=== PATIENT | male | born 1945 | race Caucasian/White ===

== ENCOUNTER 2017-05-29 14:11 | Outpatient (CLI) | payer BC, MEDICARE ==
--- NOTE | 2017-05-29 17:05 | RAD ---
PA AND LATERAL CHEST X-RAY 05/29/17 HISTORY: Dyspnea. COMPARISON: 02/18/17. FINDINGS: Right subclavian Mediport catheter remains in place and unchanged in position. Postsurgical change r elated to median sternotomy are again noted. Again noted are the parenchymal changes overlying the l eft hilar region with linear density extending laterally in the left mid lung zone unchanged from th e prior study. There are stable sclerotic densities in a few left sided ribs which were also seen on prior exam. There has been no interval change when compared to the prior study. IMPRESSION: 1. Stable parenchymal lung changes overlying the left hilar region in the left mid lung zone. 2. Stable sclerotic lesions in a few left sided ribs. 3. Chest is stable from prior exam. POS: ROSALBA
== END 2017-05-29 14:12 | disposition home or self-care (01) ==
LOC: RAD 14:11
PROVIDERS: ATTEND Family Medicine
DX: R06.00 Dyspnea, unspecified (principal); J98.4 Other disorders of lung; M89.8X8 Other specified disorders of bone, other site
CPT/HCPCS: 71020

== ENCOUNTER 2017-06-10 09:56 | Inpatient (IN) | payer BC, MEDICARE ==
[2017-06-10] MEDS ORDERED: Dextrose 50% Abboject 50 ML SYRINGE ONE (10:04)
--- NOTE | 2017-06-10 11:16 | RAD ---
PORTABLE CHEST: History: Hypoglycemia. Comparison: 05-29-17 FINDINGS/IMPRESSION: There is abnormal linear opacity in the left midlung extending from the left hilum. There is abnorma l density in the left hilum. A left hilar mass is not excluded. There is also linear atelectatic changes in the right lower lung field which is a new finding. A Massdrop iport catheter is in place with tip overlying the SVC. There is a prosthetic heart valve and post op sternotomy change. No evidence of significant change when compared to the 05-29-17 exam. Chronic left hilar and left mi dlung field opacity is again noted. Linear density in the right lower lung is slightly more prominen t today, but was present on the 05-29-17 study. POS: ROSALBA
[2017-06-10 12:19] LABS: #Lymphocytes 0.5 thou/uL (1.20-3.40); #Monocytes 0.3 thou/uL (0.11-0.59); #Neutrophils 6.8 thou/uL (1.40-6.50); %Basophils 0.1 % (0.0-1.0); %Eosinophils 0.4 % (0.0-10.0); %Lymphocytes 6.2 % (21.0-51.0); %Monocytes 4.3 % (0.0-10.0); Hematocrit 44.6 % (42.0-52.0); Mean Platelet Volume 7.1 fL (7.4-10.4); Red Blood Cell (RBC) Count 4.46 mill/uL (4.70-6.10); White Blood Cell (WBC) Count 7.7 thou/uL (4.8-10.8)
[2017-06-10 12:38] LABS: ALT (SGPT) 18 U/L (8-55); AST (SGOT) 19 U/L (5-34); Alkaline Phosphatase 66 U/L (40-150); Anion Gap 17 mmol/L (10-20); BUN (Urea Nitrogen) 10 mg/dL (8.4-25.7); Bilirubin, Total 0.9 mg/dL (0.2-1.2); CK (CPK) 99 U/L (30-200); Calc. Creatinine Clearance 0 mL/min (70-130); Calcium 10.9 mg/dL (7.8-10.44); Carbon Dioxide 25 mmol/L (23-31); Chloride 103 mmol/L (98-107); Estimated GFR-MDRD Greater than 90; Globulin 3.8 g/dL (2.4-3.5); Protein, Total 7.9 g/dL (5.8-8.1)
[2017-06-10 12:43] LABS: Troponin I Less than 0.010 ng/mL (< 0.028)
--- NOTE | 2017-06-10 13:31 | CT ---
CT HEAD WITHOUT CONTRAST: HISTORY: Mental status change. Hypoglycemia. COMPARISON: Prior MRI, dated 02/20/2017, which revealed extensive intraaxial enhancing lesions, consistent with progression of intracranial metastatic disease. That exam revealed extensive edema in the right cer ebral hemisphere. TECHNIQUE: Multiple axial tomograms obtained through the head without IV enhancement. FINDINGS: On today's exam, there is increasing edema in the right cerebral hemisphere, when compared to the CT of 02/20/2017. There was a large enhancing mass in the peripheral right frontal lobe on the prior MRI, measuring up to 4 cm. Slight midline shift from right to left, measured at the septum pellucid um, of approximately 2 to 3 mm. No acute hemorrhage. Mucosal edema in the left frontal and maxillary air cells again noted. IMPRESSION: Patient with known diffuse intracranial metastatic disease. There is increasing edema in the right cerebral hemisphere today, when compared to the prior exam, and there is slight midline shift. POS: ROSALBA
[2017-06-10] MEDS ORDERED: Mag-Al 1200 mg/1200 mg/30 ML UDCUP PO PRN (15:40)
[2017-06-10] MEDS ORDERED: Dextrose 5% in Water 1,000 ML IV PRN (15:40)
[2017-06-10] MEDS ORDERED: Senokot 8.6 MG TAB PO PRN (15:40)
[2017-06-10] MEDS ORDERED: Dextrose 50% Abboject 50 ML SYRINGE SLOW IVP PRN (15:40)
[2017-06-10] MEDS ORDERED: Guaifenesin DM 100-10/5 ML UDCUP PO PRN (15:40)
[2017-06-10] MEDS: Dextrose 5 % And 0.9 % NaCl 1,000 ML IV SCH ×2 (16:02→16:30)
[2017-06-10 18:26] VITALS: BMI 32.8
--- NOTE | 2017-06-10 19:28 | HP ---
REASON FOR ADMISSION: Persistent hypoglycemia with altered mental state. HISTORY OF PRESENT ILLNESS: Please note the majority of this history is obtained by my talking to patient's at bedside. She gives history of patient being weak from last 3 weeks. He has been falling and he is having constant headaches. He normally takes 800 mg of Motrin bedtime and Tylenol 3 tablets p.r.n. for headaches during the day. Last evening, he was not coherent and appeared confused. She summoned EMS and he had fingerstick glucose of 28. The EMS gave him D50 and the sugar came up to 100. The patient ate some crackers, orange juice and apple juice and felt good. Around midnight, he was sitting in a recliner and he felt very weak. He could not get out of the recliner. So, also slept in the sofa. This morning around 8:00 a.m., he became unresponsive and did not move. Prior to that, he would moan or say one or two words when would call him. He also had not passed any urine or used restroom for nearly 10-12 hours being in the recliner. All of this concerned hence she summoned EMS again. The patient had glucose again in the low 20s. They gave him D50, it came up to 78 and again went back down to 50s. Since then he has been placed on a D5 normal saline drip. The patient is slowly waking up now. He is able to recognize his . He is moving all extremities at present. He moves his right extremities better than left. No complaints of fever. No cough or expectoration. 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 He follows up at [facility]. He has had nearly a total of 14 cycles of chemotherapy done for his lung cancer. In February of this year, patient had an MRI of the brain and a PET scan done, which showed 9 new lesions in his brain had 10 rounds of radiation therapy done in February. Follow up in April showed the brain lesions to be shrinking but the left lung mass had grown plus there was a new spot on the liver. He had another 10 rounds of radiation therapy to the lungs. The next followup is in this month second week if he were to have recurrence or the mass or if his lung cancer remains the same size, he would be placed on experimental drug per . Diabetes mellitus, type 2; aortic valve replacement in 2010; dyslipidemia; peripheral neuropathy; sleep apnea; erectile dysfunction; circumcision for phimosis; hydrocele; cataract surgery; history of bronchoscopy for hemoptysis. He has had gamma knife radiation as mentioned above, MediPort placement in the right side. CURRENT MEDICATIONS: The patient is on metformin 1000 mg p.o. twice daily, atorvastatin 10 mg every other day, glipizide 10 mg twice daily, gabapentin 400 mg 3 times daily, losartan 50 mg q.a.m., Farxiga 5 mg p.o. daily, primidone 50 mg 3 times daily, omega-3 fatty acid 1 capsule daily. ALLERGIES: No known drug allergies. PERSONAL HISTORY: Quit smoking 21 years ago, prior to which has smoked nearly 2 packs a day for 30 years or so. Does not abuse alcohol or drugs. Lives with his . FAMILY HISTORY: Mom of cancer in her 60s, it is unclear the type. Father of dementia and old age, he was 89 years old. REVIEW OF SYSTEMS: The following complete review of systems was negative, unless otherwise mentioned in the HPI or below: Constitutional: Weight loss or gain, ability to conduct usual activities. Skin: Rash, itching. Eyes: Double vision, pain. ENT/Mouth: Nose bleeding, neck stiffness, pain, tenderness. Cardiovascular: Palpitations, dyspnea on exertion, orthopnea. Respiratory: Shortness of breath, wheezing, cough, hemoptysis, fever or night sweats. Gastrointestinal: Poor appetite, abdominal pain, heartburn, nausea, vomiting, constipation, or diarrhea. Genitourinary: Urgency, frequency, dysuria, nocturia. Musculoskeletal: Pain, swelling. Neurologic/Psychiatric: Anxiety, depression. Allergy/Immunologic: Skin rash, bleeding tendency. PHYSICAL EXAMINATION: GENERAL: The patient is a 72-year-old male, who is currently lethargic, but arousable. VITAL SIGNS: Blood pressure 110/46, pulse 90 per minute, respiratory rate 18 per minute, temperature 98 degrees Fahrenheit, saturating 100% on room air. NECK: Supple, no elevated JVD. HEENT: Eyes: Extraocular muscles intact. Pupils are reacting to light. Oral cavity mucous membranes are dry. No exudates or congestion. CARDIOVASCULAR: S1, S2 heard. Regular rhythm. RESPIRATORY: Air entry 1+ bilateral. Scattered rhonchi plus no rales or wheezes. ABDOMEN: Soft, bowel sounds heard. No tenderness, rigidity or guarding. EXTREMITIES: No peripheral edema or calf tenderness. VASCULAR: Peripheral pulses 1+ bilateral. No ischemic ulcerations or gangrene. CENTRAL NERVOUS SYSTEM: The patient is lethargic, but responds well to verbal questions. He is still groggy. Moves all extremities, but right extremities better. PSYCHIATRIC: Cannot be accurately assessed due to current lethargy with hypoglycemia. LABORATORY AND X-RAY FINDINGS: White count of 7.7, H\T\H are 14 and 44, platelet count 180, MCV is 100 with 89% neutrophils. Electrolytes are stable. BUN 10, creatinine 0.7. His fingerstick glucose has been ranging from 58 to 102. Liver enzymes are within normal limits. Albumin is 4.1. CK level is 99, troponin I less than 0.01. CT brain shows the patient has diffuse intracranial metastatic disease, there is increasing edema in the right cerebral hemisphere when compared to prior MRI done in 02/2017, there is also slight midline shift. Chest x-ray done shows there was abnormal linear opacity in the left mid lung extending from the left hilum. There was also left mid lung field opacity seen. CLINICAL IMPRESSION AND PLAN: The patient will be admitted to medical floor for persistent hypoglycemia with advanced lung cancer with multiple mets. The patient and family are aware of progressive lung cancer. He is on glipizide, metformin and Farxiga, all of which will be held for now. He has had poor oral intake from last 2-3 weeks now. The patient will be placed on D5 normal saline at 75 mL per hour until 2 fingerstick glucose readings are persistently more than 200. We will continue him on Pepcid, Neurontin as before. All other medications will be held for now until he is more awake and oriented. His overall prognosis is poor. I have discussed code status with . The patient and have a full living will. Per , the patient is a FULL CODE and they do want cardiopulmonary resuscitation done. The is the power of engineer operations and maintenance and will decide within 30 days if he still needs to continue on life sustaining measures or go for withdrawal per . Again, patient has a followup in the second week of this month and if he does have recurrence, [facility] is planning to place him on experimental drugs. His weakness is due to progressive lung cancer with multiple metastases. MTDD
[2017-06-10] MEDS: Gabapentin 400 MG CAP PO SCH (20:07)
[2017-06-10] MEDS: Heparin 5,000 UNITS/ML VIAL SC SCH (20:07)
[2017-06-10] MEDS: Famotidine 20 MG TAB PO SCH (20:07)
[2017-06-10] MEDS: Acetaminophen 325 MG TAB PO PRN (21:25)
[2017-06-11 04:39] LABS: Anion Gap 10 mmol/L (10-20); BUN (Urea Nitrogen) 7 mg/dL (8.4-25.7); Calc. Creatinine Clearance 149 mL/min (70-130); Carbon Dioxide 25 mmol/L (23-31); Chloride 106 mmol/L (98-107); Estimated GFR-MDRD Greater than 90
[2017-06-11 05:30] LABS: Band 3 % (5-11); Hematocrit 37.2 % (42.0-52.0); Mean Platelet Volume 7.9 fL (7.4-10.4); Neutrophil 77 % (42-75); White Blood Cell (WBC) Count 4.8 thou/uL (4.8-10.8)
[2017-06-11] MEDS: Dextrose 5 % And 0.9 % NaCl 1,000 ML IV SCH ×2 (05:36→17:04)
[2017-06-11] MEDS: Acetaminophen 325 MG TAB PO PRN ×2 (05:37→21:00)
[2017-06-11] MEDS ORDERED: FLU VACC TS2017-18 (>65YR) 0.5 ML SYRINGE IM ONE (09:00)
[2017-06-11] MEDS: Gabapentin 400 MG CAP PO SCH ×3 (09:33→21:00)
[2017-06-11] MEDS: Famotidine 20 MG TAB PO SCH ×2 (09:35→21:00)
[2017-06-11] MEDS: Heparin 5,000 UNITS/ML VIAL SC SCH ×2 (09:36→21:01)
[2017-06-11] MEDS: Dexamethasone 4 mg/ml Vial SLOW IVP SCH ×2 (09:41→17:04)
--- NOTE | 2017-06-11 13:11 | PDOC.PN ---
- Subjective Encounter Start Date: 06/11/17 Encounter Start Time: 11:15 -: old records requested/rev Patient seen and examined. pt is encephalopathic No overnight events - Objective Resuscitation Status: Resuscitation Status FULL:Full Resuscitation MAR Reviewed: Yes Vital Signs & Weight: Vital Signs (12 hours) Temp Pulse Resp BP Pulse Ox 06/11/17 08:00 100.3 F H 79 18 95 06/11/17 04:00 100.3 F H 79 18 114/72 91 L Weight Admit Weight 229 lb 4.48 oz Weight 229 lb 4.48 oz I&O: 06/10/17 06/11/17 06/12/17 06:59 06:59 06:59 Intake Total 1719 360 Output Total 300 Balance 1419 360 Result Diagrams: 06/11/17 04:03 06/11/17 04:03 Additional Labs: Accuchecks 06/11/17 06/11/17 06/11/17 11:38 05:07 01:06 POC Glucose 115 H 88 74 06/10/17 06/10/17 06/10/17 20:29 17:09 16:33 POC Glucose 71 84 55 L* 06/10/17 13:52 POC Glucose 80 Radiology Reviewed by me: Yes (CT brain) Phys Exam - Physical Examination Constitutional: NAD HEENT: PERRLA, sclera anicteric Neck: no JVD, supple Respiratory: no wheezing, no rales, no rhonchi Cardiovascular: RRR, no significant murmur, no rub Gastrointestinal: soft, no distention, positive bowel sounds Musculoskeletal: no edema, pulses present unable to examine Lymphatic: no nodes Deviation from normal: unable to assess Skin: no rash, normal turgor Dx/Plan (1) Acute metabolic encephalopathy due to hypoglycemia Code(s): G93.41 - METABOLIC ENCEPHALOPATHY; E16.2 - HYPOGLYCEMIA, UNSPECIFIED Status: Acute (2) Brain metastases Code(s): C79.31 - SECONDARY MALIGNANT NEOPLASM OF BRAIN Status: Chronic (3) DM2 (diabetes mellitus, type 2) Status: Chronic Comment: (4) HLD (hyperlipidemia) Code(s): E78.5 - HYPERLIPIDEMIA, UNSPECIFIED Status: Chronic (5) Lung cancer Code(s): C34.90 - MALIGNANT NEOPLASM OF UNSP PART OF UNSP BRONCHUS OR LUNG Status: Chronic (6) NIKITA (obstructive sleep apnea) Code(s): G47.33 - OBSTRUCTIVE SLEEP APNEA (ADULT) (PEDIATRIC) Status: Chronic (7) Obesity (BMI 30-39.9) Code(s): E66.9 - OBESITY, UNSPECIFIED Status: Chronic - Plan cont current plan of care, plan discussed w/ family, social service assistant * will add decadron * continue IVF * oncology consult * medication reviewed as below * symptomatic treatment * prognosis is poor * palliative care consult. Review of Systems - Review of Systems Other: unable to review as pt is encephalopathic - Medications/Allergies Allergies/Adverse Reactions: Allergies Allergy/AdvReac Type Severity Reaction Status Date / Time No Known Allergies Allergy Verified 06/10/17 16:07 Medications: Current Medications Acetaminophen (Tylenol) 650 mg PO Q4H PRN PRN Reason: Headache/Fever or Pain Last Admin: 06/11/17 05:37 Dose: 650 mg Al Hydroxide/Mg Hydroxide (Maalox) 30 ml PO Q6H PRN PRN Reason: Heartburn or Indigestion Dexamethasone (Decadron) 4 mg SLOW IVP Q8H [facility] Last Admin: 06/11/17 09:41 Dose: 4 mg Dextrose/Water (Dextrose 50%) 25 gm SLOW IVP PRN PRN PRN Reason: Hypoglycemia Famotidine (Pepcid) 20 mg PO BID [facility] Last Admin: 06/11/17 09:35 Dose: 20 mg Gabapentin (Neurontin) 400 mg PO TID [facility] Last Admin: 06/11/17 09:33 Dose: 400 mg Glucagon (Glucagon) 1 mg IM PRN PRN PRN Reason: Hypoglycemia Guaifenesin/Dextromethorphan (Robitussin Dm) 15 ml PO Q4H PRN PRN Reason: Cough Heparin Sodium (Porcine) (Heparin) 5,000 units SC BID [facility] Last Admin: 06/11/17 09:36 Dose: 5,000 units Dextrose/Sodium Chloride (D5 0.9% Ns) 1,000 mls @ 75 mls/hr IV .[id number] [facility] Last Admin: 06/11/17 05:36 Dose: 1,000 mls Dextrose/Water (D5w) 1,000 mls @ 0 mls/hr IV .Q0M PRN; As Directed PRN Reason: Hypoglycemia Senna (Senokot) 2 tab PO HSPRN PRN PRN Reason: Constipation Sodium Chloride (Flush - Normal Saline) 10 ml IVF Q12HR ALEIDA Sodium Chloride (Flush - Normal Saline) 10 ml IVF PRN PRN PRN Reason: Saline Flush
[2017-06-12] MEDS ORDERED: Dextrose 5% in Water 1,000 ML IV PRN (00:39)
[2017-06-12] MEDS ORDERED: HumaLOG 300 UNITS/3 ML VIAL SC PRN ×2 (00:39)
[2017-06-12] MEDS ORDERED: Dextrose 50% Abboject 50 ML SYRINGE IVP PRN (00:39)
[2017-06-12] MEDS: Dexamethasone 4 mg/ml Vial SLOW IVP SCH ×3 (02:03→17:18)
--- NOTE | 2017-06-12 05:59 | CON ---
DATE OF CONSULTATION: 06/11/2017 HISTORY OF PRESENT ILLNESS: The patient is well known to me. He has a small cell carcinoma of lung with brain metastasis and liver metastasis and possibly metastasis to other organs sites also. He has failed chemotherapy and had been radiated to the brain lesion more than once. He also recently had radiation therapy to his lesions in the chest. The patient was admitted with hypoglycemia. CT scan shows increasing edema in the brain. He has been started on the steroids. His mental status h as improved following correction of hypoglycemia. However, he is confined to bed. He has very yasmine le out of bed activity during the past 2 weeks. PHYSICAL EXAMINATION: GENERAL: The patient is alert and oriented. There is no palpable adenopathy. CHEST: Clear to percussion and auscultation. HEART: Regular rhythm. S1 and S2. ABDOMEN: Soft. SKIN: Skin has several large bruises. LABORATORY DATA: CBC and chemistries were reviewed. ASSESSMENT AND RECOMMENDATIONS: I had a very very lengthy discussion with the patient and his . We discussed DNR, palliative care, hospice, at great length. I have recommended that the patient be DNR and should go home with the help of hospice. The patient and did not want to be DNR imm ediately, but want to think about it. They still were talking about [facility], though I do not think there is much to be gained by pursuing a treatment option towards his cancer. Thanks very much for asking me to participate in this patient's care.
[2017-06-12 06:44] LABS: #Lymphocytes 0.3 thou/uL (1.20-3.40); #Monocytes 0.1 thou/uL (0.11-0.59); #Neutrophils 3.8 thou/uL (1.40-6.50); %Eosinophils 0.4 % (0.0-10.0); %Lymphocytes 7.5 % (21.0-51.0); %Monocytes 2.7 % (0.0-10.0); Hematocrit 38.6 % (42.0-52.0); Red Blood Cell (RBC) Count 4.01 mill/uL (4.70-6.10); White Blood Cell (WBC) Count 4.2 thou/uL (4.8-10.8)
[2017-06-12 07:08] LABS: ALT (SGPT) 15 U/L (8-55); AST (SGOT) 13 U/L (5-34); Alkaline Phosphatase 61 U/L (40-150); Anion Gap 13 mmol/L (10-20); BUN (Urea Nitrogen) 10 mg/dL (8.4-25.7); Bilirubin, Total 0.9 mg/dL (0.2-1.2); Calc. Creatinine Clearance 136 mL/min (70-130); Calcium 10.6 mg/dL (7.8-10.44); Carbon Dioxide 24 mmol/L (23-31); Chloride 105 mmol/L (98-107); Estimated GFR-MDRD Greater than 90; Globulin 3.3 g/dL (2.4-3.5)
[2017-06-12] MEDS: Famotidine 20 MG TAB PO SCH ×2 (08:22→20:42)
[2017-06-12] MEDS: Heparin 5,000 UNITS/ML VIAL SC SCH ×2 (08:23→20:42)
[2017-06-12] MEDS: Gabapentin 400 MG CAP PO SCH ×3 (08:23→20:42)
[2017-06-12] MEDS: Dextrose 5 % And 0.9 % NaCl 1,000 ML IV SCH ×3 (09:51→22:41)
--- NOTE | 2017-06-12 12:20 | PDOC.PN ---
- Subjective Encounter Start Date: 06/12/17 Encounter Start Time: 07:15 Patient seen and examined. No new complaints. No overnight events - Objective Resuscitation Status: Resuscitation Status FULL:Full Resuscitation MAR Reviewed: Yes Vital Signs & Weight: Vital Signs (12 hours) Temp Pulse Resp BP Pulse Ox 06/12/17 08:10 96.9 F L 63 18 163/76 H 95 06/12/17 08:00 96.9 F L 63 18 92 L 06/12/17 04:00 98.8 F 88 16 139/81 Weight Admit Weight 229 lb 4.48 oz Weight 229 lb 4.48 oz I&O: 06/11/17 06/12/17 06/13/17 06:59 06:59 06:59 Intake Total 1719 600 240 Output Total 300 Balance 1419 600 240 Result Diagrams: 06/12/17 06:30 06/12/17 06:30 Additional Labs: Accuchecks 06/12/17 06/12/17 06/11/17 11:28 04:59 23:59 POC Glucose 254 H 242 H 274 H 06/11/17 06/11/17 20:14 16:31 POC Glucose 293 H 191 H Phys Exam - Physical Examination Constitutional: NAD HEENT: PERRLA, moist MMs, sclera anicteric Neck: no JVD, supple Respiratory: no wheezing, no rales, no rhonchi Cardiovascular: RRR, no significant murmur, no rub Gastrointestinal: soft, non-tender, no distention, positive bowel sounds Musculoskeletal: no edema, pulses present Neurological: non-focal Lymphatic: no nodes Psychiatric: normal affect Skin: no rash, normal turgor Dx/Plan (1) Acute metabolic encephalopathy due to hypoglycemia Code(s): G93.41 - METABOLIC ENCEPHALOPATHY; E16.2 - HYPOGLYCEMIA, UNSPECIFIED Status: Acute (2) Brain metastases Code(s): C79.31 - SECONDARY MALIGNANT NEOPLASM OF BRAIN Status: Chronic (3) DM2 (diabetes mellitus, type 2) Status: Chronic Comment: (4) HLD (hyperlipidemia) Code(s): E78.5 - HYPERLIPIDEMIA, UNSPECIFIED Status: Chronic (5) Lung cancer Code(s): C34.90 - MALIGNANT NEOPLASM OF UNSP PART OF UNSP BRONCHUS OR LUNG Status: Chronic (6) NIKITA (obstructive sleep apnea) Code(s): G47.33 - OBSTRUCTIVE SLEEP APNEA (ADULT) (PEDIATRIC) Status: Chronic (7) Obesity (BMI 30-39.9) Code(s): E66.9 - OBESITY, UNSPECIFIED Status: Chronic - Plan cont current plan of care, plan discussed w/ family, 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 Review of Systems - Review of Systems Other: unable to review as pt is confused - Medications/Allergies Allergies/Adverse Reactions: Allergies Allergy/AdvReac Type Severity Reaction Status Date / Time No Known Allergies Allergy Verified 06/10/17 16:07 Medications: Current Medications Acetaminophen (Tylenol) 650 mg PO Q4H PRN PRN Reason: Headache/Fever or Pain Last Admin: 06/11/17 21:00 Dose: 650 mg Al Hydroxide/Mg Hydroxide (Maalox) 30 ml PO Q6H PRN PRN Reason: Heartburn or Indigestion Dexamethasone (Decadron) 4 mg SLOW IVP Q8H [facility] Last Admin: 06/12/17 09:50 Dose: 4 mg Dextrose/Water (Dextrose 50%) 25 gm SLOW IVP PRN PRN PRN Reason: Hypoglycemia Dextrose/Water (Dextrose 50%) 25 gm IVP PRN PRN PRN Reason: HYPOGLYCEMIA PROTOCOL Famotidine (Pepcid) 20 mg PO BID [facility] Last Admin: 06/12/17 08:22 Dose: 20 mg Gabapentin (Neurontin) 400 mg PO TID [facility] Last Admin: 06/12/17 08:23 Dose: 400 mg Glucagon (Glucagon) 1 mg IM PRN PRN PRN Reason: Hypoglycemia Glucagon (Glucagon) 1 mg IM PRN PRN PRN Reason: HYPOGLYCEMIA PROTOCOL Guaifenesin/Dextromethorphan (Robitussin Dm) 15 ml PO Q4H PRN PRN Reason: Cough Heparin Sodium (Porcine) (Heparin) 5,000 units SC BID [facility] Last Admin: 06/12/17 08:23 Dose: 5,000 units Dextrose/Sodium Chloride (D5 0.9% Ns) 1,000 mls @ 75 mls/hr IV .[id number] [facility] Last Admin: 06/12/17 09:51 Dose: 1,000 mls Dextrose/Water (D5w) 1,000 mls @ 0 mls/hr IV .Q0M PRN; As Directed PRN Reason: Hypoglycemia Dextrose/Water (D5w) 1,000 mls @ 0 mls/hr IV INF PRN; As Directed PRN Reason: HYPOGLYCEMIA PROTOCOL Insulin Human Lispro (Humalog) 0 units SC .MODERATE SLIDING SC PRN; Protocol PRN Reason: MODERATE SLIDING SCALE Last Admin: 06/12/17 06:17 Dose: 4 unit Insulin Human Lispro (Humalog) 0 units SC .BEDTIME SLIDING SC PRN; Protocol PRN Reason: BEDTIME SLIDING SCALE Senna (Senokot) 2 tab PO HSPRN PRN PRN Reason: Constipation Sodium Chloride (Flush - Normal Saline) 10 ml IVF Q12HR ALEIDA Last Admin: 06/12/17 08:23 Dose: Not Given Sodium Chloride (Flush - Normal Saline) 10 ml IVF PRN PRN PRN Reason: Saline Flush
[2017-06-12] MEDS: Acetaminophen 325 MG TAB PO PRN (22:51)
[2017-06-13] MEDS: Dexamethasone 4 mg/ml Vial SLOW IVP SCH (02:21)
[2017-06-13 08:30] VITALS: BP 134/56; TEMP 97.5
[2017-06-13] MEDS: Gabapentin 400 MG CAP PO SCH (09:22)
[2017-06-13] MEDS: Famotidine 20 MG TAB PO SCH (09:22)
[2017-06-13] MEDS: Heparin 5,000 UNITS/ML VIAL SC SCH (09:23)
--- NOTE | 2017-06-13 12:35 | PDOC.PN ---
- Subjective Encounter Start Date: 06/13/17 Encounter Start Time: 07:10 Subjective: awake, responds to verbal questions -: at bedside tells me they have to go home with [facility] - Objective Resuscitation Status: Resuscitation Status FULL:Full Resuscitation MAR Reviewed: Yes Vital Signs & Weight: Vital Signs (12 hours) Temp Pulse Resp BP Pulse Ox 06/13/17 08:00 97.5 F L 48 L 18 134/56 L 93 L 06/13/17 07:02 93 L 06/13/17 03:38 97.7 F 45 L 18 154/68 H 97 Weight Admit Weight 229 lb 4.48 oz Weight 229 lb 4.48 oz I&O: 06/12/17 06/13/17 06/14/17 06:59 06:59 05:59 Intake Total 600 720 Balance 600 720 Result Diagrams: 06/12/17 06:30 06/12/17 06:30 Additional Labs: Accuchecks 06/13/17 06/12/17 03:45 20:19 POC Glucose 230 H 306 H Phys Exam - Physical Examination HEENT: PERRLA, sclera anicteric Neck: no JVD, supple Respiratory: no wheezing, no rales Cardiovascular: RRR, no significant murmur Gastrointestinal: soft, non-tender, positive bowel sounds Musculoskeletal: pulses present, edema present Neurological: non-focal, moves all 4 limbs Dx/Plan (1) Acute metabolic encephalopathy due to hypoglycemia Code(s): G93.41 - METABOLIC ENCEPHALOPATHY; E16.2 - HYPOGLYCEMIA, UNSPECIFIED Status: Resolved (2) Brain metastases Code(s): C79.31 - SECONDARY MALIGNANT NEOPLASM OF BRAIN Status: Chronic (3) DM2 (diabetes mellitus, type 2) Status: Chronic Qualifiers: Diabetes mellitus complication status: with hyperglycemia Diabetes mellitus group home insulin use: without group home use Qualified Code(s): E11.65 - Type 2 diabetes mellitus with hyperglycemia Comment: (4) HLD (hyperlipidemia) Code(s): E78.5 - HYPERLIPIDEMIA, UNSPECIFIED Status: Chronic Qualifiers: Hyperlipidemia type: unspecified Qualified Code(s): E78.5 - Hyperlipidemia , unspecified (5) Lung cancer Code(s): C34.90 - MALIGNANT NEOPLASM OF UNSP PART OF UNSP BRONCHUS OR LUNG Status: Chronic (6) NIKITA (obstructive sleep apnea) Code(s): G47.33 - OBSTRUCTIVE SLEEP APNEA (ADULT) (PEDIATRIC) Status: Chronic (7) Obesity (BMI 30-39.9) Code(s): E66.9 - OBESITY, UNSPECIFIED Status: Chronic - Plan dc home with hospice -: d/w at bedside -: poor prognosis -: wants to continue tapering steroids for 5-6 days -: is on glipizide daily, may dc if he is not eating * . Review of Systems - Medications/Allergies Allergies/Adverse Reactions: Allergies Allergy/AdvReac Type Severity Reaction Status Date / Time No Known Allergies Allergy Verified 06/10/17 16:07
--- NOTE | 2017-06-13 15:56 | DIS ---
DATE OF ADMISSION: 06/10/2017 DATE OF DISCHARGE: 06/13/2017 DISCHARGE DISPOSITION: To home with hospice. PRIMARY DISCHARGE DIAGNOSES: Hypoglycemia due to poor appetite and oral intake , acute encephalopathy due to hypoglycemia and brain metastasis from lung cancer , diabetes mellitus type 2, lung cancer stage IV, obstructive sleep apnea, and obesity. PROCEDURES DONE DURING HOSPITALIZATION: The patient has had CT brain showed diffuse intracranial metastatic disease. There was increasing edema in the right cerebral hemisphere with slight midline shift. Chest x-ray done showed linear opacity in the left mid lung extending from the left hilum. There was also abnormal density in the left hilum. Initial fingerstick glucose of 58 on arrival here. INPATIENT CONSULTS: Dr. Iniguez for Oncology. DISCHARGE PLAN: The patient to follow up with his hospice physician in 1 week. DISCHARGE MEDICATIONS: Dexamethasone tapering dose as prescribed, gabapentin 400 mg 3 times daily, primidone 50 mg 3 times daily, glipizide 5 mg daily this needs to be discontinued if his fingersticks are less than 150 or if patient has very poor appetite and was not eating. BRIEF COURSE DURING HOSPITALIZATION: The patient initially got admitted after he was not himself and has had recurrent hypoglycemic episodes at home. His sugars were in the low 20s and was placed on D5 normal saline drip. The patient has had history of lung cancer with metastasis to brain. He has had multiple chemo and radiation done towards the same. His cancer seems to be worsening and he has had consultation with Dr. Iniguez as well. The patient's CAT scan revealed edema with metastasis in the brain and he was placed on steroids. His hypoglycemia has resolved at present. His altered mental state has also resolved fairly well. He converses. His fingerstick glucoses were ranging from 242 to 306 at the time of discharge. The patient has advanced lung cancer and has decided to take him home with hospice. They have chosen [facility]. His overall prognosis is poor. Please see a face to face documentation on [facility] for the day of discharge. [facility]
--- NOTE | 2017-06-20 16:38 | EKG ---
Test Reason : AMS Blood Pressure : / mmHG Vent. Rate : 085 BPM Atrial Rate : 153 BPM P-R Int : 000 ms QRS Dur : 154 ms QT Int : 408 ms P-R-T Axes : 000 037 029 degrees QTc Int : 485 ms Atrial fibrillation Right bundle branch block Abnormal ECG Confirmed by ASIF RIVERA MD ([id number]), video effects editor JOAQUIN KIM ([id number]) on 06/20/2017 4:38:26 PM Referred By: Confirmed By:ASIF RIVERA MD
== END 2017-06-13 10:05 | disposition hospice, home (50) | DRG 637 ==
LOC: ERS 09:56 → T4-B 13:18
PROVIDERS: ADMIT Internal Medicine; ATTEND Internal Medicine
DX: E11.649 Type 2 diabetes mellitus with hypoglycemia without coma (principal); G93.40 Encephalopathy, unspecified; G93.6 Cerebral edema; C34.92 Malignant neoplasm of unspecified part of left bronchus or lung; C79.31 Secondary malignant neoplasm of brain; G47.33 Obstructive sleep apnea (adult) (pediatric); E66.9 Obesity, unspecified; E78.5 Hyperlipidemia, unspecified; Z95.2 Presence of prosthetic heart valve; Z87.891 Personal history of nicotine dependence
CPT/HCPCS: 36415; 36416; 70450; 71010; 80048; 80053; 82550; 82553; 84484; 85025; 93005; 96361; 96374; A4216; G8978-GP-CM; G8979-GP-CL; G8987-GO-CL; G8988-GO-CL; G8989-GO-CL; J1100; J1644